=== PATIENT | male | born 1955 | race Caucasian/White ===

== ENCOUNTER 2022-12-29 07:34 | Day surgery (SDC) | payer MEDICARE, BC ==
[~2022-12-29 07:34] MED LIST: Midazolam 1 MG/ML 2 ML SDV ONE; Propofol 200 MG/20 ML SDV ONE; fentaNYL 50 MCG/ML SDV ONE
[2022-12-29] MEDS ORDERED: Lactated Ringers 1,000 ML IV SCH (08:00)
== END 2022-12-29 11:11 | disposition home or self-care (01) ==
LOC: JP.SDS 07:34
PROVIDERS: ATTEND Student in an Organized Health Care Education/Training Program
DX: Z12.11 Encounter for screening for malignant neoplasm of colon (principal); K62.1 Rectal polyp; K64.4 Residual hemorrhoidal skin tags
CPT/HCPCS: 45380; 88305; J2250; J2704; J3010; J7120